=== PATIENT | male | born 1970 | race Caucasian/White ===

== ENCOUNTER 2017-01-18 22:23 | Emergency (ER) | payer MEDICAID ==
[2017-01-18] MEDS ORDERED: Sodium Chloride 0.9% 1,000 ML ONE (23:04)
[2017-01-18] MEDS ORDERED: Sodium Chloride 0.9% 1,000 ML IV ONE (23:09)
[2017-01-18] MEDS ORDERED: Iohexol 240 (50 ml) PO ONE (23:11)
[2017-01-18 23:19] LABS: BASO % 0.3 % (0.0-2.0); EOS % 0.2 % (0.0-4.0); HEMATOCRIT 44.4 % (35.0-51.0); LYMPH # 0.9 K/uL (1.0-4.3); LYMPH % 10.7 % (20.0-40.0); MEAN CELL VOLUME 88.3 fL (80.0-94.0); MEAN CORPUSCULAR HEMOGLOBIN 29.3 pg (27.0-31.0); MEAN CORPUSCULAR HGB CONC 33.2 g/dL (33.0-37.0); MEAN PLATELET VOLUME 10.1 fL (7.2-11.7); MONO # 0.7 K/uL (0.0-0.8); MONO % 7.9 % (0.0-10.0); RED CELL DISTRIBUTION WIDTH 13.3 % (11.5-14.5); WHITE BLOOD COUNT 8.9 K/uL (4.8-10.8)
--- NOTE | 2017-01-18 23:19 | C.PDOC ---
History Of Present Illness Patient is a 46 year old male who presents to the ER with a complaint of loose watery stool since yesterday, associated with cramping abdominal pain radiating to his back. Patient had gastric bypass done in 08/23 with no significant weight loss. Denies any fever, nausea, or vomiting. Time Seen by Provider: 01/18/17 23:04 Chief Complaint (Nursing): Abdominal Pain History Per: Patient History/Exam Limitations: no limitations Onset/Duration Of Symptoms: Days (Since yesterday) Current Symptoms Are (Timing): Still Present Context: Other (Not known) Location Of Pain/Discomfort: Other (Abdominal pain) Radiation Of Pain To:: Back Quality Of Discomfort: Cramping Associated Symptoms: Other (Watery stools). denies: Fever, Nausea, Vomiting Exacerbating Factors: None Alleviating Factors: None Recent travel outside of the [place]: No Past Medical History Reviewed: Historical Data, Nursing Documentation, Vital Signs Vital Signs: Last Vital Signs Temp 98.2 F 01/18/17 22:43 Pulse 82 01/19/17 00:04 Resp 22 01/19/17 00:04 BP 129/74 01/19/17 00:04 Pulse Ox 98 01/19/17 00:04 - Medical History PMH: Diabetes, HTN, Hypercholesterolemia Other Surgeries: Gastric Bypass Family History: States: Unknown Family Hx - Social History Hx Tobacco Use: No Hx Alcohol Use: No Hx Substance Use: No - Immunization History Hx Tetanus Toxoid Vaccination: No Hx Influenza Vaccination: No Hx Pneumococcal Vaccination: No Review Of Systems Constitutional: Negative for: Fever Gastrointestinal: Positive for: Abdominal Pain (Cramping), Other (watery stools) . Negative for: Nausea, Vomiting Musculoskeletal: Positive for: Back Pain (Radiating from abdomen) Physical Exam - Physical Exam Appears: Well, Non-toxic, Other (Morbidly obese) Skin: Normal Color, Warm, Dry Head: Atraumatic, Normacephalic Oral Mucosa: Moist Chest: Symmetrical, No Tenderness Cardiovascular: Rhythm Regular, No Murmur Respiratory: Normal Breath Sounds, No Rales, No Rhonchi, No Wheezing Gastrointestinal/Abdominal: Bowel Sounds (Hyperactive), Soft, Tenderness ( Vaguely), Other (Huge Panniculus) Neurological/Psych: Oriented x3, Normal Speech, Normal Cognition ED Course And Treatment - Laboratory Results Result Diagrams: 01/18/17 23:16 05/11/17 23:16 Lab Interpretation: Normal ECG: Interpreted By Me ECG Rhythm: Sinus Tachycardia ECG Interpretation: Abnormal Rate From EC O2 Sat by Pulse Oximetry: 97 (Room air) Pulse Ox Interpretation: Normal Progress Note: Blood work, urinalysis, and CT of abd/pel with PO & IV contrast ordered. Pepcid IVP, toradol IVP, morphine IVP, and IV fluids administered. Reevaluation Time: 01:10 Reassessment Condition: Improved Medical Decision Making Medical Decision Making: crampy diarrhea, no sick contacts, no high risk foods 0100: pending CT Signed out Disposition - Disposition Disposition Time: 01:00 Condition: GOOD - Clinical Impression Clinical Impression: Abdominal colic, Diarrhea - Scribe Statement The provider has reviewed the documentation as recorded by the Scribe Tho Lehman All medical record entries made by the Scribe were at my direction and personally dictated by me. I have reviewed the chart and agree that the record accurately reflects my personal performance of the history, physical exam, medical decision making, and the department course for this patient. I have also personally directed, reviewed, and agree with the discharge instructions and disposition. Physician Patient Turnover Patient Signed Over To: Tika Restrepo Handoff Comments: follow-up CT
[2017-01-18 23:27] LABS: CHLORIDE 98 mmol/L (98-107); SODIUM 133 mmol/L (132-148)
[2017-01-18 23:30] LABS: ALB/GLOB RATIO 1.3 (1.0-2.1); ALKALINE PHOSPHATASE 92 U/L (38-126); ALT/SGPT 29 U/L (21-72); AST/SGOT 28 U/L (17-59); BILIRUBIN,TOTAL 0.7 mg/dL (0.2-1.3); BLOOD UREA NITROGEN 17 mg/dL (9-20); CARBON DIOXIDE 22 mmol/L (22-30); GFR AFRICAN-AMERICAN > 60; GLUCOSE,RANDOM 110 mg/dL (75-110); TOTAL PROTEIN 8.1 g/dL (6.3-8.3)
[2017-01-18] MEDS ORDERED: Iohexol 240 (50 ml) ONE (23:30)
[2017-01-18 23:31] LABS: CALCIUM 8.5 mg/dl (8.6-10.4)
[2017-01-18 23:39] LABS: RBC URINE < 1 /hpf (0-3); URINE BACTERIA RARE (<OCC); URINE BILIRUBIN NEGATIVE (NEGATIVE); URINE BLOOD NEGATIVE (NEGATIVE); URINE COLOR Yellow (YELLOW); URINE GLUCOSE (UA) NORMAL (Normal); URINE KETONE NEGATIVE (NEGATIVE); URINE LEUKOCYTE ESTERASE NEG Leu/uL (Negative); URINE PROTEIN NEGATIVE (NEGATIVE); URINE UROBILINOGEN NORMAL mg/dL (0.2-1.0); WBC URINE 2 /hpf (0-5)
[2017-01-18] MEDS ORDERED: Morphine 4 MG/ML VIAL ONE (23:57)
[2017-01-19] MEDS ORDERED: Iodixanol 320 mg/ml 150 ml Bottle IV ONE (00:42)
--- NOTE | 2017-01-19 02:48 | CT ---
EXAM: CT Abdomen and Pelvis With Intravenous Contrast CLINICAL HISTORY: 46 years old, male; Pain; Abdominal pain; Additional info: Diarrhea, pain abd to back, gbp 08/23 TECHNIQUE: Axial computed tomography images of the abdomen and pelvis with intravenous contrast. This CT exam was performed using one or more of the following dose reduction techniques: automated exposure control, adjustment of the mA and/or kV according to patient size, and/or use of iterative reconstruction technique. Coronal and sagittal reformatted images were created and reviewed. CONTRAST: 100 mL of [id number] administered intravenously. COMPARISON: No relevant prior studies available. FINDINGS: Lower thorax: Minimal atelectasis/scarring. ABDOMEN: Liver: Mild fatty infiltration. Gallbladder and bile ducts: No calcified stones. No ductal dilation. Pancreas: No ductal dilation. No mass. Spleen: No splenomegaly. Adrenals: No mass. Kidneys and ureters: No mass. No hydronephrosis. Stomach and bowel: Fluid within small bowel. Fluid/loose stool within colon. No definite mural thickening. No obstruction. Postsurgical changes of stomach. Appendix: Normal caliber. No inflammation. PELVIS: Bladder: Unremarkable. Reproductive: Unremarkable as visualized. ABDOMEN and PELVIS: Intraperitoneal space: No significant fluid collection. No free air. Bones/joints: No acute fracture. Soft tissues: Small umbilical hernia containing fat. Vasculature: Unremarkable. No abdominal aortic aneurysm. Lymph nodes: No pathologically enlarged lymph nodes. IMPRESSION: 1. Fluid/loose stool within bowel may suggest diarrhea illness. 2. Incidental/non-acute findings are described above.
[2017-01-19 03:44] VITALS: BP 125/72; PULSE 90; RESP 18; TEMP 97.3; O2SAT 98
== END 2017-01-19 03:53 | disposition home or self-care (01) ==
LOC: C.ER 22:23
DX: R10.84 Generalized abdominal pain (principal); R19.7 Diarrhea, unspecified
CPT/HCPCS: 74177; 80053; 81001; 83690; 85025; 96361; 96374; 96375; 99285; J1885; J2270; J7040; Q9965; Q9966